=== PATIENT | female | born 1945 | race Caucasian/White ===

== ENCOUNTER 2018-05-26 10:04 | Observation (INO) ==
--- NOTE | 2018-05-26 11:01 | XR ---
EXAM DATE: 05/26/2018 10:44 AM EDT AGE/SEX: 72 years / Female INDICATIONS: Chest pain. CLINICAL DATA: This is the patient's initial encounter. Patient reports that signs and symptoms have been present for 1 day and indicates a pain score of 6/10. MEDICAL/SURGICAL HISTORY: . asthma, COPD, heart attack None. COMPARISON: No prior exams available for comparison. FINDINGS: A single AP view of the chest demonstrates the lungs to be symmetrically aerated without evidence of mass, infiltrate or effusion. The cardiomediastinal contours are unremarkable. Osseous structures a re intact. CONCLUSION: 1. No acute cardiopulmonary disease. Electronically signed by: Geoff Deras MD 05/26/2018 11:00 AM EDT
[2018-05-26 11:15] LABS: INR 1.3 Ratio; Prothrombin Time 12.9 sec (9.8-11.6)
[2018-05-26 11:16] LABS: Baso % (Auto) 0.3 % (0.0-2.0); Eos # (Auto) 0.1 th/mm3 (0.0-0.4); Eos % (Auto) 0.6 % (0.0-4.0); Hematocrit 41.7 % (35.0-46.0); Hemoglobin 13.9 gm/dL (11.6-15.3); Lymph # (Auto) 4.1 th/mm3 (1.0-4.8); Lymph % (Auto) 30.1 % (9.0-44.0); Mean Corpuscular HGB Conc 33.4 % (32.0-36.0); Mean Corpuscular Hemoglobin 30.5 pg (27.0-34.0); Mean Corpuscular Volume 91.3 fL (80.0-100.0); Mean Platelet Volume 8.9 fL (7.0-11.0); Mono % (Auto) 7.3 % (0.0-8.0); Neut # (Auto) 8.4 th/mm3 (1.8-7.7); Neut % (Auto) 61.7 % (16.0-70.0); Platelet Count 209 th/mm3 (150-450); Red Blood Count 4.56 mil/mm3 (4.00-5.30); Red Cell Distribution Width 14.4 % (11.6-17.2); White Blood Count 13.7 th/mm3 (4.0-11.0)
[2018-05-26 11:34] LABS: Alkaline Phosphatase 62 U/L (45-117)
[2018-05-26 11:45] LABS: Alanine Aminotransferase 25 U/L (10-53); Anion Gap 13 meq/L (5-15); Aspartate Aminotransferase 28 U/L (15-37); Blood Urea Nitrogen 19 mg/dL (7-18); Calcium 9.1 mg/dL (8.5-10.1); Carbon Dioxide 21.8 meq/L (21.0-32.0); Chloride 105 meq/L (98-107); Glomerular Filtration Rate 41 mL/min (>89); Glucose,Random 119 mg/dL (74-106); Potassium 4.4 meq/L (3.5-5.1); Sodium 140 meq/L (136-145)
[2018-05-26 11:56] LABS: Creatine Kinase 132 U/L (26-192)
--- NOTE | 2018-05-26 12:52 | ED ---
HPI General Chief Complaint: Chest Pain Stated Complaint: chest pain Time Seen by Provider: 05/26/18 10:20 History of Present Illness HPI narrative: This is a 72-year-old female who presents from the [facility] with complaints of chest pain. Patient states that she woke up with chest pain of 8- 9 out of 10 on the pain scale. She describes it as a pressure like pain. She is not had previous pain like this before. The patient also reported nausea and sweating. She she also reports shortness of breath with the pain. When she arrived, she said the pain had decreased slightly after 3 sublingual nitro however it was still there. EKG showed no evidence of acute ST elevation or depression. She has not taken an aspirin and was therefore given a 324 mg aspirin here. Related Data Allergies Allergy/AdvReac Type Severity Reaction Status Date / Time No Known Allergies Allergy Unverified 05/26/18 10:42 Review of Systems ROS: all other systems reviewed are negative Constitutional Reports system reviewed and no additional complaints, except [facility] Eyes Reports system reviewed and no additional complaints, except as [facility] ENT Reports system reviewed and no additional complaints, except as [facility] Cardiovascular Reports chest pain, Reports diaphoresis, Denies palpitations and Reports dyspnea Respiratory Denies chest congestion, Denies cough and Reports dyspnea Gastrointestinal Denies abdominal pain, Reports nausea and Denies vomiting Genitourinary Reports system reviewed and no additional complaints, except as [facility] Musculoskeletal Reports system reviewed and no additional complaints, except as [facility] Neurologic Reports system reviewed and no additional complaints, except as [facility] PMFSH Social History Social History Substance History: No History of Abuse Smoking Status: Former smoker Tobacco Type: Cigarettes How Often Do You Have a Drink Containing Alcohol: Never Recent Travel in [facility] within the Last 8 Weeks: No Recent Out of Country Travel within the Last 8 Weeks: No Immunization History Tetanus Immunization: <5 Years Hx Influenza Vaccine This Season: No Exam Narrative Exam Narrative: GENERAL: Well-developed well-nourished female in no acute respiratory distress. SKIN: Focused skin assessment warm/dry. HEAD: Atraumatic. Normocephalic. EYES: No scleral icterus. No injection or drainage. ENT: No nasal bleeding or discharge. Mucous membranes pink and moist. NECK: Trachea midline. No JVD. CARDIOVASCULAR: Regular rate and rhythm. No murmur appreciated. RESPIRATORY: No accessory muscle use. Clear to auscultation. Breath sounds equal bilaterally. GASTROINTESTINAL: Abdomen soft, non-tender, nondistended. No pulsatile masses. No rebound or guarding. MUSCULOSKELETAL: No obvious deformities. No clubbing. No cyanosis. No edema. NEUROLOGICAL: Awake and alert. No obvious cranial nerve deficits. Motor grossly within normal limits. Normal speech. Course Initial Documented Vital Signs Temperature 97.9 F 05/26/18 10:07 Pulse Rate 110 H 05/26/18 10:07 Respiratory Rate 14 05/26/18 10:07 Blood Pressure 145/87 H 05/26/18 10:07 Pulse Oximetry 95 05/26/18 10:07 Last Documented Vital Signs Temperature 97.9 F 05/26/18 10:07 Pulse Rate 64 05/26/18 12:32 Respiratory Rate 18 05/26/18 12:32 Blood Pressure 124/73 05/26/18 12:32 Pulse Oximetry 99 05/26/18 12:32 Medical Decision Making MDM Narrative Medical decision making narrative: 72-year-old female presents today with complaints of chest pain. Patient states the pain was 8-9 out of 10 on the pain scale. The patient was given an aspirin and had 1 inch of nitroglycerin placed on the anterior chest wall. Patient is pain-free at this time. Cardiac enzymes are negative for acute findings. Given the patient's age and presentation and relief with nitroglycerin, patient will be admitted to the chest pain center. I discussed with both the patient her daughter and her granddaughter who is also an employee here at [employer] who all agree for the admission. Medical Screen Exam Complete: Yes Emergency Medical Condition: Yes Differential Diagnosis Differential Diagnosis: ACS versus peptic ulcer disease versus muscular skeletal pain versus pulmonary disease Lab Data Result diagrams: 05/26/18 10:36 05/26/18 10:36 Lab Results 05/26/18 05/26/18 05/26/18 Range/Units 10:36 10:36 10:36 WBC 13.7 H (4.0-11.0) th/mm3 RBC 4.56 (4.00-5.30) mil/mm3 Hgb 13.9 (11.6-15.3) gm/dL Hct 41.7 (35.0-46.0) % MCV 91.3 (80.0-100.0) fL MCH 30.5 (27.0-34.0) pg MCHC 33.4 (32.0-36.0) % RDW 14.4 (11.6-17.2) % Plt Count 209 (150-450) th/mm3 MPV 8.9 (7.0-11.0) fL Neut % (Auto) 61.7 (16.0-70.0) % Lymph % (Auto) 30.1 (9.0-44.0) % [place] % (Auto) 7.3 (0.0-8.0) % Eos % (Auto) 0.6 (0.0-4.0) % Baso % (Auto) 0.3 (0.0-2.0) % Neut # (Auto) 8.4 H (1.8-7.7) th/mm3 Lymph # (Auto) 4.1 (1.0-4.8) th/mm3 [place] # (Auto) 1.0 H (0.0-0.9) th/mm3 Eos # (Auto) 0.1 (0.0-0.4) th/mm3 Baso # (Auto) 0.0 (0.0-0.2) th/mm3 WBC Differential . Differential Comment Auto diff final PT 12.9 H (9.8-11.6) sec INR 1.3 Ratio APTT 25.0 (24.3-30.1) sec Sodium 140 (136-145) meq/L Potassium 4.4 (3.5-5.1) meq/L Chloride 105 (98-107) meq/L Carbon Dioxide 21.8 (21.0-32.0) meq/L Anion Gap 13 (5-15) meq/L BUN 19 H (7-18) mg/dL Creatinine 1.28 H (0.50-1.00) mg/dL Estimated GFR 41 L (>89) mL/min Random Glucose 119 H (74-106) mg/dL Calcium 9.1 (8.5-10.1) mg/dL Total Bilirubin 0.6 (0.2-1.0) mg/dL AST 28 (15-37) U/L ALT 25 (10-53) U/L Alkaline Phosphatase 62 (45-117) U/L Total Creatine Kinase (26-192) U/L CK-MB (CK-2) (0.5-3.6) ng/mL Troponin I Less than 0.02 L (0.02-0.05) ng/mL Total Protein 9.0 H (6.4-8.2) g/dL Albumin 4.0 (3.4-5.0) g/dL 05/26/18 Range/Units 10:36 WBC (4.0-11.0) th/mm3 RBC (4.00-5.30) mil/mm3 Hgb (11.6-15.3) gm/dL Hct (35.0-46.0) % MCV (80.0-100.0) fL MCH (27.0-34.0) pg MCHC (32.0-36.0) % RDW (11.6-17.2) % Plt Count (150-450) th/mm3 MPV (7.0-11.0) fL Neut % (Auto) (16.0-70.0) % Lymph % (Auto) (9.0-44.0) % [place] % (Auto) (0.0-8.0) % Eos % (Auto) (0.0-4.0) % Baso % (Auto) (0.0-2.0) % Neut # (Auto) (1.8-7.7) th/mm3 Lymph # (Auto) (1.0-4.8) th/mm3 [place] # (Auto) (0.0-0.9) th/mm3 Eos # (Auto) (0.0-0.4) th/mm3 Baso # (Auto) (0.0-0.2) th/mm3 WBC Differential Differential Comment PT (9.8-11.6) sec INR Ratio APTT (24.3-30.1) sec Sodium (136-145) meq/L Potassium (3.5-5.1) meq/L Chloride (98-107) meq/L Carbon Dioxide (21.0-32.0) meq/L Anion Gap (5-15) meq/L BUN (7-18) mg/dL Creatinine (0.50-1.00) mg/dL Estimated GFR (>89) mL/min Random Glucose (74-106) mg/dL Calcium (8.5-10.1) mg/dL Total Bilirubin (0.2-1.0) mg/dL AST (15-37) U/L ALT (10-53) U/L Alkaline Phosphatase (45-117) U/L Total Creatine Kinase 132 (26-192) U/L CK-MB (CK-2) Less than 1.0 (0.5-3.6) ng/mL Troponin I (0.02-0.05) ng/mL Total Protein (6.4-8.2) g/dL Albumin (3.4-5.0) g/dL Imaging Data Radiologist's impression: Chest X-Ray 05/26/18 10:44 CONCLUSION: 1. No acute cardiopulmonary disease. Discharge Plan Discharge Disposition Patient Disposition: 30 Still Patient Discharge Details Diagnosis: Chest pain Physicians Team ED Provider: Jayme Hall Primary Care Provider: NON STAFF,PROVIDER Discharge Instructions Patient Printed Instructions: Chest Pain (ED) Discharge Interventions Interventions: Vital Signs Last Done: 05/26/18 10:33 Status ED Status: With Doctor
[2018-05-26] MEDS ORDERED: Acetaminophen 500 MG Tablet PO PRN (14:25)
--- NOTE | 2018-05-26 14:25 | P.HPCA ---
History of Present Illness Primary Care Physician: PROVIDER NON STAFF Chief Complaint: Chest pain History of Present Illness: This is a 72-year-old female with history of diabetes, hypertension, dementia the presents to ED via private vehicle with her daughter from assisted living facility with complaint of chest discomfort. States she woke up with chest discomfort between 6 and 7:00. There is a heaviness. In center of her chest. She was short of breath. Denies nausea or diaphoresis. Was given 3 sublingual nitroglycerin which did help but did not resolve the symptoms. She currently is free of chest pain, symptoms lasted several hours. Her daughter is at the bedside. States that her memory issues are primarily with short-term. Cannot recall ever having a stress test or heart catheterization. Patient's daughter would prefer that the patient not have stress testing or heart catheterization. Lifetime non-smoker. Patient has history of hypertension, diabetes, dementia. Denies known CAD. The patient's father had CAD and in his 60s. Patient's son also has CAD. - Diagnosis (1) Chest pain (2) Hypertension (3) Diabetes (4) Dementia Review of Systems General: Patient denies fevers, chills, and recent travel. HEENT: Patient denies headache, sore throat, difficulty swallowing. Cardiovascular: Has the chest discomfort as mentioned above. Denies sensation of heart beating rapidly or irregularly. No syncope. Denies diaphoresis. Respiratory: She was short of breath. Denies inspirational chest discomfort. Denies coughing wheezing or hemoptysis. GI: Patient denies nausea, vomiting, diarrhea, abdominal pain, bloody stools. Musculoskeletal: Patient denies joint pain or edema. Denies calf pain or edema. Neurovascular: Patient denies numbness, tingling, weakness in extremities. Denies headache. Endocrine: Denies polyuria and polydipsia. Hematologic: Denies easy bruising. Skin: Denies rash or itching. PMFSH - History History Provided By: Patient, Family Member - Tobacco History Smoking Status: Former smoker Tobacco Type: Cigarettes - Alcohol History How Often Do You Have a Drink Containing Alcohol: Never - Substance Use History Substance History: No History of Abuse - Travel History Recent Travel in the [place] Within the Last 8 Weeks: No Recent Travel Out of the Country Within the Last 8 Weeks: No - Immunization History Tetanus Immunization: <5 Years Hx Influenza Vaccine This Season: No Medications and Allergies Active Medications: Active Medications Sodium Chloride (Ns Flush) 2 ml IV.FLUSH BID JAGDEEP Sodium Chloride (Ns Flush) 2 ml IV.FLUSH PRN PRN PRN Reason: FLUSH AFTER USING IV ACCESS Allergies Allergy/AdvReac Type Severity Reaction Status Date / Time No Known Allergies Allergy Unverified 05/26/18 10:42 Exam Vital signs: Vital Signs 05/26/18 10:07 05/26/18 10:33 05/26/18 12:32 Temperature 97.9 F Pulse Rate 110 H 100 H 64 Respiratory Rate 14 18 18 Blood Pressure 145/87 H 123/56 L 124/73 Pulse Oximetry 95 95 99 Intake & Output 05/25/18 05/26/18 05/26/18 18:59 06:59 18:59 Weight 63.503 kg Narrative: GENERAL: This is a well-nourished, well-developed patient, in no apparent distress. Patient speaks in clear complete sentences. Patient is pleasant. HEENT: Head is atraumatic and normocephalic. Neck is supple without lymphadenopathy and trachea is midline. No JVD or carotid bruits. CARDIOVASCULAR: Regular rate and rhythm without murmurs, gallops, or rubs. RESPIRATORY: Clear to auscultation. Breath sounds equal bilaterally. No wheezes , rales, or rhonchi. Chest wall is nontender. No use of accessory muscles. GASTROINTESTINAL: Some mild epigastric discomfort. Abdomen is nondistended. Abdomen soft. No obvious pulsatile mass or bruit. No CVA tenderness. Strong femoral pulses bilaterally. Normal bowel sounds in all quadrants. MUSCULOSKELETAL: Patient is moving upper and lower extremities freely. No calf tenderness or edema, no Homans sign. Strong pulses in upper and lower extremities. NEUROLOGICAL: Patient is alert and oriented. Cranial nerves 2-12 are grossly intact. No focal deficits and speech is clear. SKIN: No rash and turgor is normal. Results 05/26/18 10:36 05/26/18 10:36 Cardiac Enzymes 05/26/18 05/26/18 Range/Units 10:36 10:36 AST 28 (15-37) U/L CK-MB (CK-2) Less than 1.0 (0.5-3.6) ng/mL Troponin I Less than 0.02 L (0.02-0.05) ng/mL Coagulation 05/26/18 Range/Units 10:36 PT 12.9 H (9.8-11.6) sec APTT 25.0 (24.3-30.1) sec CBC 05/26/18 Range/Units 10:36 WBC 13.7 H (4.0-11.0) th/mm3 RBC 4.56 (4.00-5.30) mil/mm3 Hgb 13.9 (11.6-15.3) gm/dL Hct 41.7 (35.0-46.0) % Plt Count 209 (150-450) th/mm3 Neut # (Auto) 8.4 H (1.8-7.7) th/mm3 Lymph # (Auto) 4.1 (1.0-4.8) th/mm3 [place] # (Auto) 1.0 H (0.0-0.9) th/mm3 Eos # (Auto) 0.1 (0.0-0.4) th/mm3 Baso # (Auto) 0.0 (0.0-0.2) th/mm3 Comprehensive Metabolic Panel 05/26/18 Range/Units 10:36 Sodium 140 (136-145) meq/L Potassium 4.4 (3.5-5.1) meq/L Chloride 105 (98-107) meq/L Carbon Dioxide 21.8 (21.0-32.0) meq/L BUN 19 H (7-18) mg/dL Creatinine 1.28 H (0.50-1.00) mg/dL Calcium 9.1 (8.5-10.1) mg/dL AST 28 (15-37) U/L ALT 25 (10-53) U/L Alkaline Phosphatase 62 (45-117) U/L Total Protein 9.0 H (6.4-8.2) g/dL Albumin 4.0 (3.4-5.0) g/dL Intake and Output 05/25/18 05/26/18 05/26/18 22:59 06:59 14:59 Other: Weight 63.503 kg Patient Weight 05/27/18 06:59 Weight 63.503 kg - Imaging and Cardiology Imaging: Impressions Chest X-Ray 05/26/18 10:44 CONCLUSION: 1. No acute cardiopulmonary disease. EKG interpretations - EKG EKG shows: sinus rhythm (Initial EKG is sinus rhythm with inferior T wave changes are nonspecific as well as having lateral ST T changes. These are new from prior EKG for comparison) Caprini VTE Risk Assessment Caprini VTE Risk Assessment: Moderate/High Risk (score >= 2) Caprini Risk Assessment Model: Point Value = 1 Point Value = 2 Point Value = 3 Point Value = 5 Age 41-60 Minor surgery BMI > 25 kg/m2 Swollen legs Varicose veins or History of unexplained or recurrent spontaneous Oral contraceptives or hormone replacement Sepsis (< 1 month) Serious lung disease, including pneumonia (< 1 month) Abnormal pulmonary function Acute myocardial infarction Congestive heart failure (< 1 month) History of inflammatory bowel disease Medical patient at bed rest Age 61-74 Arthroscopic surgery Major open surgery (> 45 min) Laparoscopic surgery (> 45 min) Malignancy Confined to bed (> 72 hours) Immobilizing plaster cast Central venous access Age >= 75 History of VTE Family history of VTE Factor V Leiden Prothrombin [id number] Lupus anticoagulant Anticardiolipin antibodies Elevated serum homocysteine Heparin-induced thrombocytopenia Other congenital or acquired thrombophilia Stroke (< 1 month) Elective arthroplasty Hip, pelvis, or leg fracture Acute spinal cord injury (< 1 month) Prophylaxis Regimen: Total Risk Factor Score Risk Level Prophylaxis Regimen 0-1 Low Early ambulation 2 Moderate Order ONE of the following: *Sequential Compression Device (SCD) *Heparin 5000 units SQ BID 3-4 Higher Order ONE of the following medications: *Heparin 5000 units SQ TID *Enoxaparin/Lovenox 40 mg SQ daily (WT < 150 kg, CrCl > 30 mL/min) *Enoxaparin/Lovenox 30 mg SQ daily (WT < 150 kg, CrCl > 10-29 mL/min) *Enoxaparin/Lovenox 30 mg SQ BID (WT < 150 kg, CrCl > 30 mL/min) AND/OR *Sequential Compression Device (SCD) 5 or more Highest Order ONE of the following medications: *Heparin 5000 units SQ TID (Preferred with Epidurals) *Enoxaparin/Lovenox 40 mg SQ daily (WT < 150 kg, CrCl > 30 mL/min) *Enoxaparin/Lovenox 30 mg SQ daily (WT < 150 kg, CrCl > 10-29 mL/min) *Enoxaparin/Lovenox 30 mg SQ BID (WT < 150 kg, CrCl > 30 mL/min) AND *Sequential Compression Device (SCD) Assessment and Plan - Assessment (1) Chest pain Code(s): R07.9 - Chest pain, unspecified Status: Acute (2) Hypertension Code(s): I10 - Essential (primary) hypertension Status: Acute (3) Diabetes Code(s): E11.9 - Type 2 diabetes mellitus without complications Status: Acute (4) Dementia Code(s): F03.90 - Unspecified dementia without behavioral disturbance Status: Acute - Plan * Chest pain: Patient will continue to have serial cardiac enzymes and EKGs for ruling out purposes. She has been seen by Dr. Ford of cardiology in the chest pain center. Further testing was discussed with patient and her daughter. At this time patient will have serial cardiac enzymes and EKGs were ruling out purposes and if okay will be discharged home without further cardiac testing with instructions to follow-up with PCP. Return to ED for interval issues. * Hypertension: Continue medication. * Diabetes: Continue medication. Have sliding scale insulin coverage while in chest pain center. Should discuss statin therapy with her PCP with history of diabetes. Patient is stable at this time. She is agreeable to this plan. (1) Chest pain Qualifiers: Chest pain type: unspecified Qualified Code(s): R07.9 - Chest pain, unspecified
[2018-05-26 14:56] LABS: Creatine Kinase 113 U/L (26-192)
--- NOTE | 2018-05-26 16:32 | ECG ---
Date Performed: 05/26/2018 Time Performed: 10:30:27 PTAGE: 72 years EKG: Sinus rhythm INFERIOR MYOCARDIAL INFARCTION Nonspecific T wave changes Compared to prior electrocardiogram, Infer ior SC pattern and STT wave changes are present. PREVIOUS TRACING : 05/25/2018 23.08 DOCTOR: Leland Rodriguez Interpretating Date/Time 05/26/2018 16:30:30
[2018-05-26] MEDS: Famotidine 20 MG Tablet PO SCH ×2 (16:41→21:34)
[2018-05-26 18:16] LABS: Creatine Kinase 113 U/L (26-192)
[2018-05-26] MEDS: Insulin NovoLIN Regular Correctional Sugar Inj SQ SCH ×2 (18:43→21:33)
[2018-05-26] MEDS: Montelukast 10 MG Tablet PO SCH (19:21)
[2018-05-26] MEDS ORDERED: Zolpidem Tartrate 5 MG Tablet PO PRN (23:36)
[2018-05-27] MEDS: Famotidine 20 MG Tablet PO SCH (08:40)
[2018-05-27] MEDS: Furosemide 40 MG Tablet PO SCH (08:40)
[2018-05-27] MEDS: Aspirin 325 MG Tablet PO SCH (08:40)
[2018-05-27] MEDS: QUEtiapine 25 MG Tablet PO SCH (08:41)
[2018-05-27] MEDS: Insulin NovoLIN Regular Correctional Sugar Inj SQ SCH ×4 (08:45→21:54)
[2018-05-27] MEDS ORDERED: Sodium Chlor 0.9% Inj 500 ML IV.SIG SCH (10:57)
--- NOTE | 2018-05-27 11:15 | ECG ---
Date Performed: 05/26/2018 Time Performed: 14:55:36 PTAGE: 72 years EKG: Sinus rhythm LOW QRS VOLTAGE IN EXTREMITY LEADS MODERATE T-WAVE ABNORMALITY, nonspecific ABNORMAL ECG PREVIOUS TRACING : 05/26/2018 10.30 DOCTOR: Justice Ford Interpretating Date/Time 05/27/2018 11:14:52
--- NOTE | 2018-05-27 11:15 | ECG ---
Date Performed: 05/26/2018 Time Performed: 17:04:37 PTAGE: 72 years EKG: Sinus rhythm LOW QRS VOLTAGE IN PRECORDIAL LEADS NONSPECIFIC T-WAVE ABNORMALITY ABNORMAL ECG PREVIOUS TRACING : 05/26/2018 14.55 Since previous tracing, no significant change noted DOCTOR: Justice Ford Interpretating Date/Time 05/27/2018 11:14:11
[2018-05-27] MEDS ORDERED: Aluminum/Magnesium/Simethacone Susp 30 ML UDC PO ONE (11:30)
[2018-05-27 12:48] LABS: Baso # (Auto) 0.1 th/mm3 (0.0-0.2); Baso % (Auto) 0.5 % (0.0-2.0); Eos % (Auto) 0.1 % (0.0-4.0); Hematocrit 43.7 % (35.0-46.0); Hemoglobin 14.4 gm/dL (11.6-15.3); Lymph # (Auto) 3.3 th/mm3 (1.0-4.8); Lymph % (Auto) 22.6 % (9.0-44.0); Mean Corpuscular HGB Conc 32.9 % (32.0-36.0); Mean Corpuscular Hemoglobin 30.5 pg (27.0-34.0); Mean Corpuscular Volume 92.8 fL (80.0-100.0); Mean Platelet Volume 8.9 fL (7.0-11.0); Mono # (Auto) 0.8 th/mm3 (0.0-0.9); Mono % (Auto) 5.8 % (0.0-8.0); Neut # (Auto) 10.2 th/mm3 (1.8-7.7); Platelet Count 202 th/mm3 (150-450); Red Blood Count 4.71 mil/mm3 (4.00-5.30); Red Cell Distribution Width 14.4 % (11.6-17.2); White Blood Count 14.4 th/mm3 (4.0-11.0)
[2018-05-27] MEDS ORDERED: Bisacodyl 10 MG Supp RECTAL PRN (13:53)
--- NOTE | 2018-05-27 15:40 | P.PN ---
Subjective Interval history: Follow up for chest discomfort, diabetes mellitus, GERD. Patient is currently resting in bed. She reports abdominal pain. No N/V or diarrhea. No fever, chills. She has not had a bowel movement in two days. Physical Exam Vital signs: Vital Signs 05/26/18 19:44 05/26/18 20:00 05/26/18 23:02 Temperature 97.0 F L 97.9 F Pulse Rate 61 59 L Respiratory Rate 18 18 Blood Pressure 161/72 H 186/76 H Pulse Oximetry 91 L 91 L 95 05/27/18 03:06 05/27/18 08:00 05/27/18 08:40 Temperature 97.6 F 99.6 F Pulse Rate 57 L 58 L 55 L Respiratory Rate 19 16 Blood Pressure 147/67 H 153/72 H Pulse Oximetry 96 98 05/27/18 12:00 05/27/18 13:51 Temperature 98.5 F Pulse Rate 60 Respiratory Rate 16 Blood Pressure 139/78 Pulse Oximetry 97 97 Intake & Output 05/26/18 05/27/18 05/27/18 18:59 06:59 18:59 Intake Total 240 / 240 0 / 0 Output Total 240 / 240 Balance 0 / 0 0 / 0 Weight 71.7 kg 71.668 kg Intake: Oral 240 / 240 0 / 0 Output: Emesis 240 / 240 Other: # Voids 1 2 Date of Last Bowel Movement 05/26/18 05/26/18 # Bowel Movements 1 Weight On Admission 71.668 kg Narrative: GENERAL: This is a well-nourished, well-developed patient, in no apparent distress. Patient speaks in clear complete sentences. Patient is pleasant. HEENT: Head is atraumatic and normocephalic. Neck is supple without lymphadenopathy and trachea is midline. No JVD or carotid bruits. CARDIOVASCULAR: Regular rate and rhythm without murmurs, gallops, or rubs. RESPIRATORY: Clear to auscultation. Breath sounds equal bilaterally. No wheezes , rales, or rhonchi. Chest wall is nontender. No use of accessory muscles. GASTROINTESTINAL: Some mild epigastric discomfort. Abdomen is nondistended. Abdomen soft. No obvious pulsatile mass or bruit. No CVA tenderness. Strong femoral pulses bilaterally. Normal bowel sounds in all quadrants. MUSCULOSKELETAL: Patient is moving upper and lower extremities freely. No calf tenderness or edema, no Homans sign. Strong pulses in upper and lower extremities. NEUROLOGICAL: Patient is alert and oriented. Cranial nerves 2-12 are grossly intact. No focal deficits and speech is clear. SKIN: No rash and turgor is normal. Results - Labs CBC & Chem 7: 05/27/18 11:48 05/26/18 10:36 Laboratory Results - last 24 hr 05/26/18 05/26/18 05/26/18 16:38 17:39 20:24 WBC RBC Hgb Hct MCV MCH MCHC RDW Plt Count MPV Neut % (Auto) Lymph % (Auto) [place] % (Auto) Eos % (Auto) Baso % (Auto) Neut # (Auto) Lymph # (Auto) [place] # (Auto) Eos # (Auto) Baso # (Auto) WBC Differential Differential Comment POC Glucose 169 H 142 H Total Creatine Kinase 113 Troponin I Less than 0.02 L Lipase 05/27/18 05/27/18 05/27/18 08:18 11:48 11:48 WBC 14.4 H RBC 4.71 Hgb 14.4 Hct 43.7 MCV 92.8 MCH 30.5 MCHC 32.9 RDW 14.4 Plt Count 202 MPV 8.9 Neut % (Auto) 71.0 H Lymph % (Auto) 22.6 [place] % (Auto) 5.8 Eos % (Auto) 0.1 Baso % (Auto) 0.5 Neut # (Auto) 10.2 H Lymph # (Auto) 3.3 [place] # (Auto) 0.8 Eos # (Auto) 0.0 Baso # (Auto) 0.1 WBC Differential . Differential Comment Auto diff final POC Glucose 136 H Total Creatine Kinase Troponin I Lipase 71 L 05/27/18 12:09 WBC RBC Hgb Hct MCV MCH MCHC RDW Plt Count MPV Neut % (Auto) Lymph % (Auto) [place] % (Auto) Eos % (Auto) Baso % (Auto) Neut # (Auto) Lymph # (Auto) [place] # (Auto) Eos # (Auto) Baso # (Auto) WBC Differential Differential Comment POC Glucose 135 H Total Creatine Kinase Troponin I Lipase Assessment and Plan - Plan Ms. Joshua is a pleasant 72 year old female with a history of dementia, DM, HTN who was admitted to the chest pain center for chest pain evaluation. Patient 's troponins were unremarkable. Patient did not want to do any further work up. Chest pain center providers requested hospitalist service to take over the care of this patient. Chest discomfort -Possibly due to GI problems. -will d/c Pepcid and start patient on Protonix 40mg BID. GERD Abdominal pain -Discussed with RN about giving her some milk of Mag. Hypertension Dementia - Continue Amlodipine 2.5mg, Enalapril 10mg Qday. - Continue Lasix 40mg Qday. - Continue Donepezil. Diabetes mellitus - Currently on sliding scale insulin. - BG is controlled. Full code. Ambulation. Discharge plan: If patient continues to do well, we may consider discharging patient on 05/28/2018.
[2018-05-27] MEDS: amLODIPine 5 MG Tablet PO SCH (18:02)
[2018-05-27] MEDS: Montelukast 10 MG Tablet PO SCH (18:05)
[2018-05-28 07:31] VITALS: O2SAT 95
[2018-05-28] MEDS: Insulin NovoLIN Regular Correctional Sugar Inj SQ SCH (07:37)
[2018-05-28] MEDS: Furosemide 40 MG Tablet PO SCH (08:47)
[2018-05-28] MEDS: Aspirin 325 MG Tablet PO SCH (08:47)
[2018-05-28] MEDS: amLODIPine 5 MG Tablet PO SCH (08:48)
[2018-05-28] MEDS: QUEtiapine 25 MG Tablet PO SCH (08:48)
--- NOTE | 2018-05-28 10:20 | P.PN ---
Subjective Interval history: Follow up for chest pain, GERD. Patient is currently doing well. No CP, SOB, fever, chills. Wants to go home at her [facility]. Physical Exam Vital signs: Vital Signs 05/27/18 12:00 05/27/18 13:51 05/27/18 16:00 Temperature 98.5 F 98.5 F Pulse Rate 60 61 Respiratory Rate 16 16 Blood Pressure 139/78 158/73 H Pulse Oximetry 97 97 95 05/27/18 20:00 05/27/18 23:30 05/28/18 04:00 Temperature 99.4 F 98.5 F 99.1 F Pulse Rate 63 80 65 Respiratory Rate 16 17 17 Blood Pressure 177/77 H 125/97 H 142/71 H Pulse Oximetry 95 95 96 05/28/18 07:28 05/28/18 09:35 Temperature 98.5 F Pulse Rate 66 66 Respiratory Rate 12 Blood Pressure 143/80 H Pulse Oximetry 95 Intake & Output 05/27/18 05/28/18 05/28/18 18:59 06:59 18:59 Intake Total 480 / 480 620 / 620 Balance 480 / 480 620 / 620 Weight 71.668 kg Intake: IV 500 / 500 NS Inj 500 ML @ 80 mls/hr IV. 500 / 500 SIG .Q10H JAGDEEP Rx#:[id number] Oral 480 / 480 120 / 120 Other: # Voids 2 1 Date of Last Bowel Movement 05/26/18 Narrative: GENERAL: This is a well-nourished, well-developed patient, in no apparent distress. Patient speaks in clear complete sentences. Patient is pleasant. HEENT: Head is atraumatic and normocephalic. Neck is supple without lymphadenopathy and trachea is midline. No JVD or carotid bruits. CARDIOVASCULAR: Regular rate and rhythm without murmurs, gallops, or rubs. RESPIRATORY: Clear to auscultation. Breath sounds equal bilaterally. No wheezes , rales, or rhonchi. Chest wall is nontender. No use of accessory muscles. GASTROINTESTINAL: Some mild epigastric discomfort. Abdomen is nondistended. Abdomen soft. No obvious pulsatile mass or bruit. No CVA tenderness. Strong femoral pulses bilaterally. Normal bowel sounds in all quadrants. MUSCULOSKELETAL: Patient is moving upper and lower extremities freely. No calf tenderness or edema, no Homans sign. Strong pulses in upper and lower extremities. NEUROLOGICAL: Patient is alert and oriented. Cranial nerves 2-12 are grossly intact. No focal deficits and speech is clear. SKIN: No rash and turgor is normal. Results - Labs CBC & Chem 7: 05/27/18 11:48 05/26/18 10:36 Laboratory Results - last 24 hr 05/27/18 05/27/18 05/27/18 11:48 11:48 12:09 WBC 14.4 H RBC 4.71 Hgb 14.4 Hct 43.7 MCV 92.8 MCH 30.5 MCHC 32.9 RDW 14.4 Plt Count 202 MPV 8.9 Neut % (Auto) 71.0 H Lymph % (Auto) 22.6 [place] % (Auto) 5.8 Eos % (Auto) 0.1 Baso % (Auto) 0.5 Neut # (Auto) 10.2 H Lymph # (Auto) 3.3 [place] # (Auto) 0.8 Eos # (Auto) 0.0 Baso # (Auto) 0.1 WBC Differential . Differential Comment Auto diff final POC Glucose 135 H Lipase 71 L 05/27/18 05/27/18 05/28/18 17:43 20:27 07:36 WBC RBC Hgb Hct MCV MCH MCHC RDW Plt Count MPV Neut % (Auto) Lymph % (Auto) [place] % (Auto) Eos % (Auto) Baso % (Auto) Neut # (Auto) Lymph # (Auto) [place] # (Auto) Eos # (Auto) Baso # (Auto) WBC Differential Differential Comment POC Glucose 155 H 126 H 120 H Lipase Assessment and Plan - Plan Ms. Joshua is a pleasant 72 year old female with a history of dementia, DM, HTN who was admitted to the chest pain center for chest pain evaluation. Patient 's troponins were unremarkable. Patient did not want to do any further work up. Chest pain center providers requested hospitalist service to take over the care of this patient. Chest discomfort -Possibly due to GI problems. -Continue patient on Protonix 40mg BID for 4 weeks then once a day. GERD Abdominal pain -Discussed with RN about giving her some milk of Mag. Hypertension Dementia - Continue Amlodipine 2.5mg, Enalapril 10mg Qday. - Continue Lasix 40mg Qday. - Continue Donepezil. Diabetes mellitus - Currently on sliding scale insulin. - BG is controlled. Full code. Ambulation. Discharge patient to home ([facility]) Condition on discharge: Improved Heart healthy Diet as tolerated Ad Emilia activity Rx written: Protonix 40mg BID for 4 weeks then once a day Potassium Chloride 10meq once a day. Follow-up with primary care physician within 1 week.
[2018-05-28 11:31] VITALS: BP 155/80; PULSE 75; RESP 16; TEMP 99
== END 2018-05-28 12:45 ==
LOC: NEPC 10:04 → NEDA 10:04 → NEPHCDU 13:40
PROVIDERS: ADMIT Hospitalist; ATTEND Hospitalist